=== PATIENT | female | born 1945 | race Caucasian/White ===

== ENCOUNTER 2016-12-07 12:22 | Emergency (ER) | payer OTHER ==
[~2016-12-07] VITALS: Ht 165.1 cm; Wt 73.3 kg
[~2016-12-07 12:22] MED LIST: AGGRENOX1 CAPSULE PO; AMBIEN10 MG PO; ANTI-DIARRHEA2 MG PO; ASCOMP WITH CO1 EACH PO; ASPIRIN325 MG PO; AVENTYL,PAMELOR10 MG PO; Ambien PO; BENTYL20 MG PO; CEFTIN500 MG PO; CODEINE SULFATE30 MG PO; COUMADIN,JANTOVE5 MG PO; COUMADIN10 MG PO; COUMADIN3 MG PO; COUMADIN4 MG PO; CYSTEX TABLET1 EAC1 PO; Codeine Sulfate PO; Coumadin,Jantoven PO; DICLOMINE PO; DILANTIN100 MG PO; Dilaudid PO; Dulcolax PO; ENDOCET 5-3251 EACH PO; Ecotrin PO; FIORICET,ESG1 TABLET PO; Famvir PO; IMODIUM MS REL1 EACH PO; INDERAL LA120 MG PO; INDERAL40 MG PO; KEPPRA250 MG PO; Keppra PO; LEVAQUIN250 MG PO; LEVOFLOXACIN750 MG PO; LIDODERM 5% P1 PATCH TD; LIPITOR40 MG PO; LYRICA75 MG PO; Levaquin PO; Lopressor PO; METRONIDAZOLE500 MG PO; MORPHINE SULFAT15 M1 PO; Miralax, Glycolax PO; NORTRIPTYLINE H10 MG PO; OXAYDO5 MG PO; OXYCODONE HCL10 MG PO; OXYCODONE HCL5 MG PO; OXYCONTIN20 MG PO; Oscal 500 w/Vitamin PO; PHENOBARBITAL; PHENOBARBITAL100 MG PO; PHENOBARBITAL30 MG PO; PHENobarbital PO; PROTONIX40 MG PO; PROVENTIL,2.5 MG/0.5 AEROSOL; Percocet 5/325,Endoc PO; Protonix PO; RANITIDINE HCL150 MG PO; Robitussin DM PO; Senokot S,Pericolace PO; THERAGRAN1 TABLET PO; TOPAMAX25 MG PO; TRAMADOL HCL50 MG PO; TRAZODONE HCL50 MG PO; Topamax PO; Tylenol Regular Stre PO; VITAMIN E1000 UNI1 PO; XARELTO10 MG PO; XARELTO20 MG PO; ZITHROMAX Z-PA250 MG PO; ZOFRAN4 MG PO; oxyCODONE PO
[2016-12-07 12:57] LABS: ADD MIUA? NO; BILIRUBIN NEGATIVE; BLOOD NEGATIVE; COLOR YELLOW ((YELLOW)); GLUCOSE (STRIP) NEGATIVE; KETONES NEGATIVE; LEUKOCYTES NEGATIVE; NITRITE NEGATIVE; PROTEIN (STRIP) NEGATIVE; SPECIFIC GRAVITY 1.017 (1.000-1.030); UCUL ADDED? NO; UROBILINOGEN 0.2 MG/DL (0.2-1.0)
[2016-12-07 13:15] LABS: HEMATOCRIT 41.3 % (36.0-46.0); MCH 28.4 PG (29.0-34.0); MCHC 32.7 G/DL (30.0-36.0); MCV 86.9 FL (83-99); MEAN PLAT.VOLUME 11.1 uM^3 (9.5-12.4); PLATELET COUNT 285 K/uL (156-360); RBC DIS.WIDTH-CV 12.9 % (11.8-14.6); RBC DIS.WIDTH-SD 40.7 % (39-53); RED BLOOD COUNT 4.75 M/uL (3.80-5.20); WHITE BLOOD COUNT 7.1 K/uL (4.1-10.2)
[2016-12-07 13:16] LABS: CHLORIDE 107 mEq/L (99-109); POTASSIUM 4.8 mEq/L (3.7-5.4); SODIUM 140 mEq/L (136-147)
[2016-12-07 13:18] LABS: GLUCOSE 68 mg/dL (70-99)
[2016-12-07 13:19] LABS: ANION GAP 13 MEQ/L (2-14)
[2016-12-07 13:20] LABS: TOTAL BILIRUBIN 0.1 mg/dL (0.0-1.0)
[2016-12-07 13:21] LABS: ALKALINE PHOSPHATASE 113 IU/L (3-129)
[2016-12-07 13:22] LABS: GFR ESTIMATE (CALCULATED) > 59 mL/min/
[2016-12-07 13:23] LABS: UREA NITROGEN (BUN) 27 mg/dL (9-23)
[2016-12-07] MEDS ORDERED: ZOFRAN ODT8 MG PO (19:09)
[2016-12-07] MEDS ORDERED: NORCO 5/3251 TABLET PO (19:09)
[2016-12-07 19:28] VITALS: BP 140/75
== END 2016-12-07 19:30 | disposition home or self-care (01) ==
LOC: EME 12:22
DX: R10.30 Lower abdominal pain, unspecified (principal); R51 Headache; E78.5 Hyperlipidemia, unspecified; I10 Essential (primary) hypertension; Z86.73 Personal history of transient ischemic attack (TIA), and cerebral infarction without residual deficits
CPT/HCPCS: 70450; 74176; 80053; 81003; 85027; 99281; 99285; J2270

== ENCOUNTER 2017-04-14 23:37 | Emergency (ER) | payer OTHER ==
[~2017-04-14] VITALS: Ht 165.1 cm; Wt 68.2 kg
[~2017-04-14 23:37] MED LIST changes: +NORCO 5/3251 TABLET PO; +ZOFRAN ODT8 MG PO
[2017-04-15 04:49] VITALS: BP 161/79
== END 2017-04-15 04:50 | disposition home or self-care (01) ==
LOC: RME 23:37 → EME 23:37 → RME 04-15 04:50
DX: G43.909 Migraine, unspecified, not intractable, without status migrainosus (principal); R42 Dizziness and giddiness; I69.354 Hemiplegia and hemiparesis following cerebral infarction affecting left non-dominant side; Z85.3 Personal history of malignant neoplasm of breast; Z90.13 Acquired absence of bilateral breasts and nipples; Z79.01 Long term (current) use of anticoagulants; Z79.82 Long term (current) use of aspirin
CPT/HCPCS: 99281; 99283; J2270

== ENCOUNTER 2017-04-20 05:06 | Emergency (ER) | payer OTHER ==
[~2017-04-20] VITALS: Ht 165.1 cm; Wt 67.9 kg
[2017-04-20 05:53] LABS: BASOPHIL COUNT 0.1 K/uL (0-0.1); EOSINOPHIL (%) 1.8 % (0-5); EOSINOPHIL COUNT 0.1 K/uL (0-0.3); HEMATOCRIT 38.9 % (36.0-46.0); IMMATURE GRANULOCYTE (%) 0.6 % (0.0-0.7); INSTRUMENT ABS NEUTROPHIL CT 4.5 K/uL; LYMPHOCYTE COUNT 2.1 K/uL (1.0-2.8); MCH 28.9 PG (29.0-34.0); MCHC 34.2 G/DL (30.0-36.0); MCV 84.4 FL (83-99); MEAN PLAT.VOLUME 10.6 uM^3 (9.5-12.4); MONOCYTE COUNT 0.4 K/uL (0-0.8); NEUTROPHIL (%) 62.1 % (45-76); NEUTROPHIL COUNT 4.5 K/uL (1.8-6.4); PLATELET COUNT 289 K/uL (156-360); RBC DIS.WIDTH-CV 13.2 % (11.8-14.6); RED BLOOD COUNT 4.61 M/uL (3.80-5.20); WHITE BLOOD COUNT 7.2 K/uL (4.1-10.2)
[2017-04-20 06:03] LABS: CHLORIDE 111 mEq/L (99-109); POTASSIUM 4.3 mEq/L (3.7-5.4); SODIUM 142 mEq/L (136-147)
[2017-04-20 06:04] LABS: GLUCOSE 100 mg/dL (70-99)
[2017-04-20 06:06] LABS: ANION GAP 12 MEQ/L (2-14)
[2017-04-20 06:08] LABS: GFR ESTIMATE (CALCULATED) 52 mL/min/
[2017-04-20 06:09] LABS: UREA NITROGEN (BUN) 22 mg/dL (9-23)
[2017-04-20] MEDS ORDERED: FIORICET 50-301 EACH PO (06:15)
[2017-04-20 06:38] VITALS: BP 144/77
== END 2017-04-20 06:39 | disposition home or self-care (01) ==
LOC: EME 05:06
PROVIDERS: Emergency Medicine
DX: G43.909 Migraine, unspecified, not intractable, without status migrainosus (principal); E78.5 Hyperlipidemia, unspecified; I10 Essential (primary) hypertension; K21.9 Gastro-esophageal reflux disease without esophagitis; Z86.73 Personal history of transient ischemic attack (TIA), and cerebral infarction without residual deficits
CPT/HCPCS: 80048; 85025; 99281; 99284; J2270

== ENCOUNTER 2017-04-25 16:54 | Emergency (ER) | payer OTHER ==
[~2017-04-25] VITALS: Ht 165.1 cm; Wt 68.0 kg
[~2017-04-25 16:54] MED LIST changes: +FIORICET 50-301 EACH PO
[2017-04-25 19:59] VITALS: BP 123/92
== END 2017-04-25 20:01 | disposition home or self-care (01) ==
LOC: EME 16:54
DX: G43.909 Migraine, unspecified, not intractable, without status migrainosus (principal); Z86.73 Personal history of transient ischemic attack (TIA), and cerebral infarction without residual deficits; Z85.3 Personal history of malignant neoplasm of breast; Z79.01 Long term (current) use of anticoagulants; Z79.82 Long term (current) use of aspirin
CPT/HCPCS: 99281; 99284; J2270; J2405

== ENCOUNTER 2018-04-12 08:53 | Inpatient (IN) | payer OTHER ==
[~2018-04-12] VITALS: Ht 165.1 cm; Wt 73.9 kg
[2018-04-12 10:01] LABS: CHLORIDE 104 mEq/L (99-109); POTASSIUM 5.8 mEq/L (3.7-5.4); SODIUM 139 mEq/L (136-147)
[2018-04-12 10:02] LABS: GLUCOSE 117 mg/dL (70-99)
[2018-04-12 10:06] LABS: CREATININE 1.1 mg/dL (0.6-1.3); GFR ESTIMATE (CALCULATED) 52 mL/min/
[2018-04-12 10:07] LABS: UREA NITROGEN (BUN) 28 mg/dL (9-23)
[2018-04-12 11:05] LABS: BASOPHIL (%) 0.4 % (0-1); BASOPHIL COUNT 0.1 K/uL (0-0.1); EOSINOPHIL (%) 0.3 % (0-5); HEMATOCRIT 44.1 % (36.0-46.0); HEMOGLOBIN 15.1 G/DL (11.9-15.5); IMMATURE GRANULOCYTE (%) 0.3 % (0.0-0.7); LYMPHOCYTE (%) 7.4 % (15-42); MCH 29.3 PG (29.0-34.0); MCHC 34.2 G/DL (30.0-36.0); MCV 85.5 FL (83-99); MONOCYTE (%) 4.4 % (3-12); MONOCYTE COUNT 0.6 K/uL (0-0.8); NEUTROPHIL (%) 87.2 % (45-76); NEUTROPHIL COUNT 11.4 K/uL (1.8-6.4); PLATELET COUNT 304 K/uL (156-360); RBC DIS.WIDTH-CV 12.6 % (11.8-14.6); RED BLOOD COUNT 5.16 M/uL (3.80-5.20)
[2018-04-12 11:15] LABS: CHLORIDE 104 mEq/L (99-109); SODIUM 139 mEq/L (136-147)
[2018-04-12 11:16] LABS: POTASSIUM 4.5 mEq/L (3.7-5.4)
[2018-04-12 11:17] LABS: GLUCOSE 96 mg/dL (70-99)
[2018-04-12 11:21] LABS: CREATININE 1.1 mg/dL (0.6-1.3); GFR ESTIMATE (CALCULATED) 52 mL/min/
[2018-04-12 11:22] LABS: UREA NITROGEN (BUN) 26 mg/dL (9-23)
[2018-04-12 13:14] LABS: APPEARANCE CLEAR ((CLEAR)); BILIRUBIN NEGATIVE; BLOOD SMALL; COLOR STRAW ((YELLOW)); GLUCOSE (STRIP) NEGATIVE; KETONES NEGATIVE; LEUKOCYTES NEGATIVE; NITRITE NEGATIVE; PROTEIN (STRIP) NEGATIVE; SPECIFIC GRAVITY 1.047 (1.000-1.030); UROBILINOGEN 0.2 MG/DL (0.2-1.0)
[2018-04-12] MEDS ORDERED: INDERAL20 MG PO (13:20)
[2018-04-12 13:21] LABS: BACTERIA NONE SEEN /HPF; EPITHELIAL CELLS RARE /HPF; MUCUS TRACE /LPF; RED BLOOD CELLS 0-5 /HPF (0-5); UCUL ADDED? NO; WHITE BLOOD CELLS 0-5 /HPF (0-5)
[2018-04-12 20:40] LABS: CHLORIDE 107 MEQ/L (99-109); POTASSIUM 4.8 MEQ/L (3.7-5.4); SODIUM 137 MEQ/L (136-147)
[2018-04-12 20:43] LABS: HEMOGLOBIN 12.3 G/DL (11.9-15.5); MCH 29.4 PG (29.0-34.0); MCHC 33.2 G/DL (30.0-36.0); MCV 88.3 FL (83-99); RBC DIS.WIDTH-CV 12.8 % (11.8-14.6); RBC DIS.WIDTH-SD 41.1 % (39-53); RED BLOOD COUNT 4.19 M/uL (3.80-5.20); WHITE BLOOD COUNT 7.1 K/uL (4.1-10.2)
[2018-04-12 20:46] LABS: GFR ESTIMATE (CALCULATED) 58 mL/min/; UREA NITROGEN (BUN) 23 mg/dL (9-23)
[2018-04-12 20:47] LABS: GLUCOSE 168 mg/dL (70-99)
[2018-04-12 21:06] LABS: PLATELET COUNT UNABLE TO REPORT K/uL (156-360)
[2018-04-12 21:07] LABS: ABS NEUTROPHIL COUNT 4.6; ANISOCYTOSIS NONE SEEN; ATYPICAL LYMPHOCYTE 1.7 %; BAND NEUTROPHILS 23.5 % (0-8.0); BASOPHILS 0.9 %; EOSINOPHIL ABS CT 0; HEMATOLOGY COMMENT 1 SN; LYMPHOCYTES 21.7 % (15.0-45.0); METAMYELOCYTES 0.9 %; MONOCYTES 7.8 % (0-9.0); MYELOCYTES 2.6 %; PLAT.SUFFICIENCY ADEQUATE; SEG.NEUTROPHILS 40.9 % (46.0-76.0)
[2018-04-12 22:59] VITALS: BP 118/58
[2018-04-13] VITALS (7 sets, daily range): BP systolic 93–118; BP diastolic 50–59
[2018-04-13 05:44] LABS: HEMATOCRIT 33.2 % (36.0-46.0); HEMOGLOBIN 10.8 G/DL (11.9-15.5); MCHC 32.5 G/DL (30.0-36.0); RBC DIS.WIDTH-CV 13.1 % (11.8-14.6); RBC DIS.WIDTH-SD 42.7 % (39-53); RED BLOOD COUNT 3.73 M/uL (3.80-5.20); WHITE BLOOD COUNT 6.8 K/uL (4.1-10.2)
[2018-04-13 05:54] LABS: PLATELET COUNT 204 K/uL (156-360)
[2018-04-13 06:04] LABS: CHLORIDE 108 MEQ/L (99-109); CREATININE 0.8 MG/DL (0.6-1.3); GFR ESTIMATE (CALCULATED) > 59 mL/min/; GLUCOSE 148 mg/dL (70-99); POTASSIUM 4.6 MEQ/L (3.7-5.4); SODIUM 138 MEQ/L (136-147); UREA NITROGEN (BUN) 17 mg/dL (9-23)
[2018-04-14 03:36] VITALS: BP 117/57
[2018-04-14 05:54] LABS: HEMATOCRIT 27.4 % (36.0-46.0); MCH 29.8 PG (29.0-34.0); MCHC 32.8 G/DL (30.0-36.0); MCV 90.7 FL (83-99); PLATELET COUNT 168 K/uL (156-360); RBC DIS.WIDTH-CV 13.3 % (11.8-14.6); RBC DIS.WIDTH-SD 44.9 % (39-53); RED BLOOD COUNT 3.02 M/uL (3.80-5.20); WHITE BLOOD COUNT 6.7 K/uL (4.1-10.2)
[2018-04-14 06:16] LABS: CHLORIDE 106 MEQ/L (99-109); CREATININE 0.7 MG/DL (0.6-1.3); GFR ESTIMATE (CALCULATED) > 59 mL/min/; GLUCOSE 132 mg/dL (70-99); POTASSIUM 4.1 MEQ/L (3.7-5.4); SODIUM 138 MEQ/L (136-147); UREA NITROGEN (BUN) 11 mg/dL (9-23)
[2018-04-14 07:03] VITALS: BP 123/59
[2018-04-14 11:11] VITALS: BP 147/90
[2018-04-14 17:06] VITALS: BP 141/67
[2018-04-14 19:15] VITALS: BP 160/78
[2018-04-14 23:33] VITALS: BP 188/79
[2018-04-15] VITALS (7 sets, daily range): BP systolic 139–187; BP diastolic 73–91
[2018-04-15 07:41] LABS: CHLORIDE 100 MEQ/L (99-109); CREATININE 0.8 MG/DL (0.6-1.3); GFR ESTIMATE (CALCULATED) > 59 mL/min/; GLUCOSE 148 mg/dL (70-99); POTASSIUM 3.6 MEQ/L (3.7-5.4); SODIUM 137 MEQ/L (136-147); UREA NITROGEN (BUN) 7 mg/dL (9-23)
[2018-04-15 07:59] LABS: BASOPHIL (%) 0.3 % (0-1); EOSINOPHIL (%) 0.4 % (0-5); EOSINOPHIL COUNT 0.1 K/uL (0-0.3); HEMATOCRIT 30.7 % (36.0-46.0); HEMOGLOBIN 10.6 G/DL (11.9-15.5); IMMATURE GRANULOCYTE (%) 0.8 % (0.0-0.7); LYMPHOCYTE (%) 7.5 % (15-42); LYMPHOCYTE COUNT 0.9 K/uL (1.0-2.8); MCH 29.4 PG (29.0-34.0); MCHC 34.5 G/DL (30.0-36.0); MONOCYTE (%) 6.4 % (3-12); MONOCYTE COUNT 0.8 K/uL (0-0.8); NEUTROPHIL (%) 84.6 % (45-76); NEUTROPHIL COUNT 10.1 K/uL (1.8-6.4); RBC DIS.WIDTH-CV 12.7 % (11.8-14.6); RBC DIS.WIDTH-SD 39.1 % (39-53); RED BLOOD COUNT 3.61 M/uL (3.80-5.20); WHITE BLOOD COUNT 11.9 K/uL (4.1-10.2)
[2018-04-15 08:00] LABS: PLATELET COUNT 240 K/uL (156-360)
[2018-04-16 03:44] VITALS: BP 157/77
[2018-04-16 05:44] LABS: BASOPHIL (%) 0.6 % (0-1); BASOPHIL COUNT 0.1 K/uL (0-0.1); EOSINOPHIL (%) 1.3 % (0-5); EOSINOPHIL COUNT 0.1 K/uL (0-0.3); HEMATOCRIT 30.8 % (36.0-46.0); HEMOGLOBIN 10.7 G/DL (11.9-15.5); LYMPHOCYTE (%) 12.2 % (15-42); LYMPHOCYTE COUNT 1.3 K/uL (1.0-2.8); MCH 28.8 PG (29.0-34.0); MCHC 34.7 G/DL (30.0-36.0); MCV 82.8 FL (83-99); MONOCYTE (%) 10.6 % (3-12); MONOCYTE COUNT 1.1 K/uL (0-0.8); NEUTROPHIL (%) 73.3 % (45-76); NEUTROPHIL COUNT 7.9 K/uL (1.8-6.4); PLATELET COUNT 274 K/uL (156-360); RBC DIS.WIDTH-CV 12.6 % (11.8-14.6); RBC DIS.WIDTH-SD 38.2 % (39-53); RED BLOOD COUNT 3.72 M/uL (3.80-5.20); WHITE BLOOD COUNT 10.8 K/uL (4.1-10.2)
[2018-04-16 06:07] LABS: CHLORIDE 101 MEQ/L (99-109); CREATININE 0.8 MG/DL (0.6-1.3); GFR ESTIMATE (CALCULATED) > 59 mL/min/; GLUCOSE 137 mg/dL (70-99); POTASSIUM 3.2 MEQ/L (3.7-5.4); SODIUM 137 MEQ/L (136-147); UREA NITROGEN (BUN) 9 mg/dL (9-23)
[2018-04-16 08:42] VITALS: BP 125/73
[2018-04-16 11:43] VITALS: BP 125/65
[2018-04-16 11:52] LABS: MAGNESIUM 1.8 mg/dl (1.3-2.7)
[2018-04-16 17:00] VITALS: BP 163/72
[2018-04-16 20:30] VITALS: BP 127/56
[2018-04-16 23:36] VITALS: BP 164/77
[2018-04-17 04:13] VITALS: BP 153/72
[2018-04-17 05:51] LABS: ABSOLUTE RETICULOCYTE CT. 0.07 M/uL (0.02-0.08); HEMATOCRIT 31.4 % (36.0-46.0); HEMOGLOBIN 10.8 G/DL (11.9-15.5); IMM.RETIC FRACTION 23.3 % (3-19); MCH 28.8 PG (29.0-34.0); MCHC 34.4 G/DL (30.0-36.0); MCV 83.7 FL (83-99); PLATELET COUNT 241 K/uL (156-360); RBC DIS.WIDTH-CV 12.9 % (11.8-14.6); RBC DIS.WIDTH-SD 39.8 % (39-53); RED BLOOD COUNT 3.75 M/uL (3.80-5.20); RETIC HGB EQUIVALENT 28.1 (28-36); WHITE BLOOD COUNT 9.4 K/uL (4.1-10.2)
[2018-04-17 06:19] LABS: CHLORIDE 103 MEQ/L (99-109); CREATININE 0.7 MG/DL (0.6-1.3); GFR ESTIMATE (CALCULATED) > 59 mL/min/; GLUCOSE 110 mg/dL (70-99); POTASSIUM 3.3 MEQ/L (3.7-5.4); SODIUM 137 MEQ/L (136-147); UREA NITROGEN (BUN) 9 mg/dL (9-23)
[2018-04-17 06:48] LABS: IRON 29 MCG/DL (35-150); TRANSFERRIN (TIBC) 184.1 mg/dL (215-380); TRANSFERRIN SATUR. 16 % (20-55)
[2018-04-17 06:50] LABS: ABS NEUTROPHIL COUNT 5.7; ANISOCYTOSIS NONE SEEN; EOSINOPHIL ABS CT 0.2; EOSINOPHILS 1.8 % (0-5.0); LYMPHOCYTES 19.8 % (15.0-45.0); METAMYELOCYTES 0.9 %; MONOCYTES 14.4 % (0-9.0); MYELOCYTES 2.7 %; PLAT.SUFFICIENCY ADEQUATE; SEG.NEUTROPHILS 60.4 % (46.0-76.0); SMUDGE CELLS 8.1
[2018-04-17 07:54] VITALS: BP 135/76
[2018-04-17 08:33] LABS: FOLIC ACID (FOLATE) 14.2 NG/ML (5.0-22.0)
[2018-04-17 09:51] LABS: FERRITIN 170 NG/ML (10-291)
[2018-04-17 11:38] VITALS: BP 166/84
[2018-04-17 17:04] VITALS: BP 149/77
[2018-04-17 19:10] VITALS: BP 159/77
[2018-04-17 23:26] VITALS: BP 158/70
[2018-04-18 03:30] VITALS: BP 143/63
[2018-04-18 05:34] LABS: HEMATOCRIT 29.6 % (36.0-46.0); HEMOGLOBIN 10.2 G/DL (11.9-15.5); MCH 29.1 PG (29.0-34.0); MCHC 34.5 G/DL (30.0-36.0); MCV 84.6 FL (83-99); RBC DIS.WIDTH-CV 13.3 % (11.8-14.6); RBC DIS.WIDTH-SD 41.1 % (39-53)
[2018-04-18 05:43] LABS: PLATELET COUNT 320 K/uL (156-360)
[2018-04-18 06:00] LABS: CHLORIDE 105 MEQ/L (99-109); CREATININE 0.7 MG/DL (0.6-1.3); GFR ESTIMATE (CALCULATED) > 59 mL/min/; GLUCOSE 113 mg/dL (70-99); POTASSIUM 3.8 MEQ/L (3.7-5.4); SODIUM 140 MEQ/L (136-147); UREA NITROGEN (BUN) 7 mg/dL (9-23)
[2018-04-18 07:16] LABS: ABS NEUTROPHIL COUNT 5.4; ANISOCYTOSIS NONE SEEN; ATYPICAL LYMPHOCYTE 0.9 %; EOSINOPHIL ABS CT 0.3; EOSINOPHILS 3.5 % (0-5.0); LYMPHOCYTES 22.8 % (15.0-45.0); METAMYELOCYTES 1.8 %; MYELOCYTES 3.5 %; NUCLEATED RBC'S 0.9; OVALOCYTES 1+; PLAT.SUFFICIENCY ADEQUATE; SEG.NEUTROPHILS 59.6 % (46.0-76.0)
[2018-04-18 07:17] LABS: BAND NEUTROPHILS 0.9 % (0-8.0)
[2018-04-18 07:51] VITALS: BP 143/71
[2018-04-18 12:00] VITALS: BP 137/64
[2018-04-18 15:50] VITALS: BP 157/72
[2018-04-18 19:30] VITALS: BP 145/85
[2018-04-19 00:10] VITALS: BP 132/62
[2018-04-19 01:04] LABS: C DIFF TOXIN NEGATIVE (NEGATIVE)
[2018-04-19 03:22] VITALS: BP 140/62
[2018-04-19 06:11] LABS: CHLORIDE 106 MEQ/L (99-109); CREATININE 0.6 MG/DL (0.6-1.3); GFR ESTIMATE (CALCULATED) > 59 mL/min/; GLUCOSE 115 mg/dL (70-99); POTASSIUM 3.8 MEQ/L (3.7-5.4); SODIUM 141 MEQ/L (136-147); UREA NITROGEN (BUN) 6 mg/dL (9-23)
[2018-04-19 07:01] LABS: HEMATOCRIT 29.4 % (36.0-46.0); HEMOGLOBIN 10.1 G/DL (11.9-15.5); MCH 28.8 PG (29.0-34.0); MCHC 34.4 G/DL (30.0-36.0); MCV 83.8 FL (83-99); PLATELET COUNT 366 K/uL (156-360); RBC DIS.WIDTH-CV 13.5 % (11.8-14.6); RBC DIS.WIDTH-SD 41.4 % (39-53); RED BLOOD COUNT 3.51 M/uL (3.80-5.20); WHITE BLOOD COUNT 9.3 K/uL (4.1-10.2)
[2018-04-19 07:39] LABS: ABS NEUTROPHIL COUNT 5.6; ANISOCYTOSIS 1+; ATYPICAL LYMPHOCYTE 0.9 %; BAND NEUTROPHILS 2.6 % (0-8.0); EOSINOPHIL ABS CT 0.2; EOSINOPHILS 2.6 % (0-5.0); LYMPHOCYTES 22.8 % (15.0-45.0); METAMYELOCYTES 5.3 %; MICROCYTOSIS 1+; MONOCYTES 7.9 % (0-9.0); NUCLEATED RBC'S 0.9; PLAT.SUFFICIENCY ADEQUATE; POIKILOCYTOSIS 1+; SEG.NEUTROPHILS 57.9 % (46.0-76.0); TOXIC GRANULATION 2+
[2018-04-19 09:18] VITALS: BP 147/67
[2018-04-19] MEDS ORDERED: ULTRAM50 MG PO (10:19)
[2018-04-19 12:13] VITALS: BP 182/79
== END 2018-04-19 16:14 | disposition home health service (06) | DRG 330 ==
LOC: EME 08:53 → SDC 13:28 → EME 13:34 → SDC 13:34 → 2SOUTH 13:58 → ENRESERV 14:14 → CANRESERV 17:23 → 2SOUTH 19:13 → ENRESERV 19:17 → 4EAST 22:45
PROVIDERS: Anesthesiology; Emergency Medicine; Physician Assistant; Physician Assistant Surgical; Surgery
PROC: 0DNU0ZZ Release Omentum, Open Approach (ICD-10-PCS; principal; 2018-04-12)
PROC: B543ZZA Ultrasonography of Right Jugular Veins, Guidance (ICD-10-PCS; principal; 2018-04-12)
PROC: 0DNE0ZZ Release Large Intestine, Open Approach (ICD-10-PCS; principal; 2018-04-12)
PROC: 0DBA0ZZ Excision of Jejunum, Open Approach (ICD-10-PCS; principal; 2018-04-12)
PROC: 05HM33Z Insertion of Infusion Device into Right Internal Jugular Vein, Percutaneous Approach (ICD-10-PCS; principal; 2018-04-12)
PROC: 0DNA0ZZ Release Jejunum, Open Approach (ICD-10-PCS; principal; 2018-04-12)
DX: K57.00 Diverticulitis of small intestine with perforation and abscess without bleeding (principal); K66.0 Peritoneal adhesions (postprocedural) (postinfection); F05 Delirium due to known physiological condition; E78.5 Hyperlipidemia, unspecified; E87.6 Hypokalemia; I10 Essential (primary) hypertension; K21.9 Gastro-esophageal reflux disease without esophagitis; G40.909 Epilepsy, unspecified, not intractable, without status epilepticus; E66.8 Other obesity; I95.9 Hypotension, unspecified; G43.909 Migraine, unspecified, not intractable, without status migrainosus; C78.7 Secondary malignant neoplasm of liver and intrahepatic bile duct; D64.9 Anemia, unspecified; Z68.29 Body mass index [BMI] 29.0-29.9, adult; Z91.19 Patient's noncompliance with other medical treatment and regimen; Z79.01 Long term (current) use of anticoagulants; Z85.3 Personal history of malignant neoplasm of breast; Z86.73 Personal history of transient ischemic attack (TIA), and cerebral infarction without residual deficits; Z79.899 Other long term (current) drug therapy; Z90.13 Acquired absence of bilateral breasts and nipples; Z80.51 Family history of malignant neoplasm of kidney; Z90.710 Acquired absence of both cervix and uterus
CPT/HCPCS: 70450; 71045; 74018; 74177; 80048; 80048 91; 81003; 82607; 82728; 82746; 83540; 83735; 84466; 85025; 85025 91; 85025 GA; 85027; 85046; 86850; 86900; 86901; 87070; 87075; 87205; 87493; 88307; 94799; 97530 GO; 99281; 99285; A6260; J0131; J0360; J1170; J1630; J1644; J1956; J2270; J2405; J2710; J3010; J3480; J7030; J7643; P9045; S0028; S0030; S0074